=== PATIENT | female | born 1990 | race Caucasian/White ===

== ENCOUNTER 2017-06-02 00:18 | Emergency (ER) | payer OTHER ==
[~2017-06-02] VITALS: Ht 157.5 cm; Wt 53.6 kg
[2017-06-02] MEDS ORDERED: LIDOcaine 1.5% w/epinephrine 1:200,000 5ml ampul IJ ONE (00:45)
[2017-06-02 01:54] VITALS: BP 118/95
== END 2017-06-02 01:56 | disposition home or self-care (01) ==
LOC: ER 00:19
DX: S01.01XA Laceration without foreign body of scalp, initial encounter (principal); W18.39XA Other fall on same level, initial encounter; Y93.89 Activity, other specified; Y92.89 Other specified places as the place of occurrence of the external cause; Y99.8 Other external cause status
CPT/HCPCS: 12001; 99283; A6449; J3490

== ENCOUNTER 2018-05-03 17:47 | Emergency (ER) | payer BC ==
[~2018-05-03] VITALS: Ht 162.6 cm; Wt 51.1 kg
[2018-05-03 18:24] LABS: URINE HCG NEGATIVE (NEG)
--- NOTE | 2018-05-03 18:35 | NUR ---
feels like being stabbed and knocking the wind out of her: epigastric area : pt doubled over in pain
[2018-05-03 18:36] LABS: CLARITY,URINE SLIGHTLY CLOUDY (Clear); COLOR,URINE YELLOW (Yellow); GLUCOSE, URINE NEGATIVE (Neg); KETONES,URINE NEGATIVE (Neg); LEUKOCYTE ESTERASE ,URINE NEGATIVE (Neg); NITRITES, URINE POSITIVE (Neg); OCCULT BLOOD,URINE TRACE-INTACT (Neg); PH,URINE 5.5 (4.8-8.0); PROTEIN,URINE NEGATIVE (Neg); UROBILINOGEN,URINE 0.2 E.U/dL (0.2-1.0)
[2018-05-03 18:38] LABS: UA COLLECTION TYPE CLN CATCH MIDSTREAM
[2018-05-03 18:43] LABS: BACTERIA,URINE 3+ /HPF (Neg); MUCUS STRANDS MANY /LPF (Neg); RBC,URINE NONE SEEN /HPF (0-2); SQUAMOUS EPITHELIAL CELL,UR MODERATE /LPF (FEW)
[2018-05-03] MEDS ORDERED: pantoprazole 40 MG vial IV STA (18:45)
[2018-05-03] MEDS ORDERED: ondansetron/PF 4mg/2ml inj IV ONE (18:45)
[2018-05-03] MEDS ORDERED: normal saline 1000ml 1,000 ML IV ONE (18:50)
[2018-05-03] MEDS ORDERED: morphine 2 MG/ML inj. syringe IV ONE (19:10)
[2018-05-03 19:30] LABS: ALANINE AMINOTRANSFERASE 17 U/L (12-78); ALBUMIN 4.4 G/DL (3.4-5.0); ALBUMIN/GLOBULIN RATIO 1.4 (1.1-1.5); ALKALINE PHOSPHATASE 59 IU/L (46-116); AMYLASE 67 U/L (25-115); ANION GAP 12 (8-16); ASPARTATE AMINO TRANSFERASE 14 U/L (10-37); BILIRUBIN,TOTAL 0.3 MG/DL (0.1-1.0); BLOOD UREA NITROGEN 13 MG/DL (7-18); CALCIUM 9.1 MG/DL (8.5-10.1); CHLORIDE 102 MMOL/L (99-107); CREATININE 0.65 MG/DL (0.40-0.90); GLUCOSE 80 MG/DL (70-104); LIPASE 121 U/L (73-393); POTASSIUM 3.6 MMOL/L (3.5-5.1); SODIUM 140 MMOL/L (135-145); TOTAL CARBON DIOXIDE 26.3 MMOL/L (24-32); TOTAL PROTEIN 7.5 G/DL (6.4-8.2); eGFR > 90 ML/MIN
[2018-05-03 19:37] LABS: BASOPHILS % (AUTO) 0.5 % (0-1); EOSINOPHILS % (AUTO) 0.7 % (0-6); HEMATOCRIT 38.8 % (35.0-45.0); HEMOGLOBIN 12.9 g/dl (12.0-16.0); LYMPHOCYTES # (AUTO) 2.2 X10'3 (1.1-4.8); LYMPHOCYTES % (AUTO) 32.8 % (21-51); MEAN CORPUSCULAR HGB CONC 33.3 % (33.0-36.5); MEAN CORPUSCULAR VOLUME 90.2 FL (78-98); MEAN PLATELET VOLUME 10.9 FL (7.4-10.4); MONOCYTES # (AUTO) 0.5 X10'3 (0-0.9); MONOCYTES % (AUTO) 7.8 % (2-12); NEUTROPHILS # (AUTO) 3.9 X10'3 (1.8-7.7); NEUTROPHILS % (AUTO) 58.2 % (42-75); PLATELET COUNT 190 X10'3 (140-440); RED BLOOD COUNT 4.31 X10'6 (4.20-5.60); RED CELL DISTRIBUTION WIDTH 15.6 % (11.5-14.5); WHITE BLOOD COUNT 6.6 X10'3 (4.5-11.0)
[2018-05-03 19:55] LABS: PROTHROMBIN TIME 10.4 SECONDS (9.0-12.0)
[2018-05-03 20:03] LABS: URINE AMPHETAMINE SCREEN NEGATIVE (Neg); URINE BARBITUATE SCREEN NEGATIVE (Neg); URINE BENZODIAZEPINES SCREEN NEGATIVE (Neg); URINE CANNABINOID SCREEN NEGATIVE (Neg); URINE COCAINE SCREEN NEGATIVE (Neg); URINE METHADONE SCREEN NEGATIVE (Neg); URINE OPIATE SCREEN NEGATIVE (Neg); URINE PHENCYCLIDINE SCREEN NEGATIVE (Neg)
[2018-05-03 20:05] LABS: PLATELET ESTIMATE NORMAL
[2018-05-03 20:06] LABS: LARGE PLATELETS MODERATE
[2018-05-03] MEDS ORDERED: PANT20TA3 PO (20:41)
[2018-05-03] MEDS ORDERED: SUCR1TAB34 PO (20:41)
[2018-05-03] MEDS ORDERED: ONDA4TAB6 PO (20:41)
--- NOTE | 2018-05-03 20:49 | NUR ---
SPOKE WITH SATYA PROVIDER REGARDING URINE: SHE IS AWARE OF UA RESULTS; PATIENT JUST FINISHED TREATMENT FOR A UTI.
[2018-05-03 20:54] VITALS: BP 91/64
== END 2018-05-03 20:55 | disposition home or self-care (01) ==
LOC: ER 17:48
DX: R10.13 Epigastric pain (principal); R10.84 Generalized abdominal pain; Z79.899 Other long term (current) drug therapy
CPT/HCPCS: 36415; 74176; 80053; 80305; 81001; 81025; 82150; 83690; 85025; 85610; 87077; 87088; 87186; 96374; 96375; 99284; C9113; J2270; J2405; J7030

== ENCOUNTER 2018-09-08 14:26 | Emergency (ER) | payer BC ==
[~2018-09-08] VITALS: Ht 162.6 cm; Wt 51.6 kg
[~2018-09-08 14:26] MED LIST: ONDA4TAB6 PO; PANT20TA3 PO; SUCR1TAB34 PO
[2018-09-08 14:42] VITALS: BP 104/76
[2018-09-08] MEDS ORDERED: ALPR-624 PO (14:48)
== END 2018-09-08 14:55 | disposition home or self-care (01) ==
LOC: ER 14:27
DX: F41.9 Anxiety disorder, unspecified (principal); Z76.0 Encounter for issue of repeat prescription; Z79.899 Other long term (current) drug therapy
CPT/HCPCS: 99283

== ENCOUNTER 2023-09-19 08:04 | Emergency (ER) | payer BC, MEDICAID, OTHER ==
[~2023-09-19] VITALS: Ht 162.6 cm; Wt 58.2 kg
[~2023-09-19 08:04] MED LIST changes: +ALPR-624 PO; +PANT20TA18 PO; -PANT20TA3 PO
[2023-09-19 08:07] VITALS: TEMP 98.8
[2023-09-19] MEDS ORDERED: LORA-268 PO (09:22)
[2023-09-19] MEDS ORDERED: ALPR-624 PO (09:22)
[2023-09-19] MEDS ORDERED: QUET25TA PO (09:22)
[2023-09-19] MEDS: LORazepam 0.5 MG tablet PO STA (09:23)
[2023-09-19] MEDS ORDERED: quetiapine 100mg tablet PO SCH ×2 (09:30→09:53)
[2023-09-19] MEDS: QUEtiapine 25mg tablet PO ONE (10:12)
[2023-09-19 10:34] LABS: BASOPHILS % (AUTO) 0.4 % (0-1); EOSINOPHILS % (AUTO) 0.2 % (0-6); HEMATOCRIT 40.1 % (35.0-45.0); HEMOGLOBIN 13.4 g/dl (12.0-16.0); LYMPHOCYTES # (AUTO) 1.4 X10'3 (1.1-4.8); LYMPHOCYTES % (AUTO) 28.9 % (21-51); MEAN CORPUSCULAR HEMOGLOBIN 32.3 PG (27.0-31.0); MEAN CORPUSCULAR HGB CONC 33.4 g/dL (33.0-36.5); MEAN CORPUSCULAR VOLUME 96.5 FL (78-98); MEAN PLATELET VOLUME 10.4 FL (7.4-10.4); MONOCYTES # (AUTO) 0.4 X10'3 (0-0.9); MONOCYTES % (AUTO) 9.3 % (2-12); NEUTROPHILS # (AUTO) 2.9 X10'3 (1.8-7.7); NEUTROPHILS % (AUTO) 61.2 % (42-75); PLATELET COUNT 163 X10'3 (140-440); RED BLOOD COUNT 4.16 X10'6 (4.20-5.60); RED CELL DISTRIBUTION WIDTH 12.5 % (11.5-14.5); WHITE BLOOD COUNT 4.8 X10'3 (4.5-11.0)
[2023-09-19 10:48] LABS: ALANINE AMINOTRANSFERASE 10 U/L (12-78); ALBUMIN 3.9 G/DL (3.4-5.0); ALBUMIN/GLOBULIN RATIO 1.2 (1.1-1.5); ALKALINE PHOSPHATASE 56 IU/L (46-116); ANION GAP 12 (8-16); ASPARTATE AMINO TRANSFERASE 14 U/L (10-37); BILIRUBIN,TOTAL 0.5 MG/DL (0.1-1.0); BLOOD UREA NITROGEN 8 MG/DL (7-18); BUN/CREATININE RATIO 12.3 (10.0-20.0); CALCIUM 8.6 MG/DL (8.5-10.1); CHLORIDE 104 MMOL/L (99-107); CREATININE 0.65 MG/DL (0.40-0.90); GLUCOSE 92 MG/DL (70-104); POTASSIUM 3.8 MMOL/L (3.5-5.1); SODIUM 142 MMOL/L (135-145); TOTAL CARBON DIOXIDE 26.4 MMOL/L (24-32); TOTAL PROTEIN 7.2 G/DL (6.4-8.2); eCRCL 106 ML/MIN; eGFR > 90 ML/MIN
[2023-09-19 10:59] LABS: BILIRUBIN,DIRECT 0.1 MG/DL (0-0.3); CHOL/HDL RATIO 3.6 (0.00-4.99); CHOLESTEROL 191 MG/DL (0-200); HDL CHOLESTEROL 53 MG/DL (35-60); LDL CHOLESTEROL 113 MG/DL (50-100); THYROID STIMULATING HORMONE 1.11 ulU/ml (0.34-4.50); TRIGLYCERIDES 102 MG/DL (20-135)
[2023-09-19 11:02] VITALS: BP 105/68; PULSE 64; RESP 16; O2SAT 99
== END 2023-09-19 12:00 | disposition home or self-care (01) ==
LOC: ER 08:05
DX: F41.9 Anxiety disorder, unspecified (principal); R07.89 Other chest pain; Z79.899 Other long term (current) drug therapy
CPT/HCPCS: 36415; 71046; 80048; 80061; 80076; 84443; 84484; 85025; 93005; 99285